=== PATIENT | male | born 1985 | race African-American/Black ===

== ENCOUNTER 2024-06-02 17:39 | Emergency (ER) | payer OTHER ==
[~2024-06-02] VITALS: Ht 175.3 cm; Wt 109.0 kg
[2024-06-02 17:49] VITALS: O2SAT 100
[2024-06-02] MEDS ORDERED: IBUP-2029 MT (18:33)
[2024-06-02 19:35] VITALS: BP 121/68; PULSE 66; RESP 18; TEMP 36.7; O2SAT 100
== END 2024-06-02 19:36 | disposition home or self-care (01) ==
LOC: ER 17:39
DX: M25.512 Pain in left shoulder (principal); M25.572 Pain in left ankle and joints of left foot; M79.602 Pain in left arm; M79.642 Pain in left hand; I10 Essential (primary) hypertension; J45.909 Unspecified asthma, uncomplicated; V03.10XA Pedestrian on foot injured in collision with car, pick-up truck or van in traffic accident, initial encounter; Y93.89 Activity, other specified; Y92.89 Other specified places as the place of occurrence of the external cause; Y99.8 Other external cause status
CPT/HCPCS: 99282